=== PATIENT | female | born 2000 | race Caucasian/White ===

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

== ENCOUNTER 2023-03-08 14:49 | Emergency (ER) | payer BC ==
[~2023-03-08] VITALS: Ht 162.6 cm; Wt 74.8 kg
[2023-03-08] MEDS ORDERED: LAMOTRIGINE25 MG PO (14:58)
[2023-03-08] MEDS ORDERED: ESCITALOPRAM OX20 MG PO (14:58)
[2023-03-08] MEDS ORDERED: ATOMOXETINE HCL40 MG PO (14:59)
[2023-03-08] MEDS ORDERED: HYDROCODON-ACE1 EA10 PO (16:13)
[2023-03-08] MEDS ORDERED: ONDANSETRON ODT8 MG PO (16:13)
[2023-03-08] MEDS ORDERED: FAMCICLOVIR500 MG PO (16:13)
[2023-03-08 16:20] VITALS: BP 133/83
== END 2023-03-08 16:32 | disposition home or self-care (01) ==
LOC: ED 14:49
DX: B02.9 Zoster without complications (principal); Z88.0 Allergy status to penicillin; Z79.899 Other long term (current) drug therapy
CPT/HCPCS: 99283; A9270